=== PATIENT | male | born 1970 | race Hispanic/Latino ===

== ENCOUNTER 2018-07-06 01:28 | Emergency (ER) | payer OTHER ==
--- NOTE | 2018-07-06 03:05 | ED PDOC ---
HPI: Chest Pain Time Seen by Provider: 07/06/18 02:05 Chief Complaint (Nursing): Chest Pain Chief Complaint (Provider): Chest Pain History Per: Patient History/Exam Limitations: no limitations Onset/Duration Of Symptoms: Hrs (1 hr [employer]) Current Symptoms Are (Timing): Still Present Exacerbating Factors: Movement Additional Complaint(s): 48 year old male with pmhx of sarcoidosis lungs, anxiety and HTN presents to the ED for an evaluation of left sided chest pain radiating to the left arm onset one hour prior to arrival today. Patient reports the pain worsens with movement and touch. Otherwise, he denies fever or shortness of breath . PMD: no family provider Past Medical History Reviewed: Historical Data, Nursing Documentation, Vital Signs Vital Signs: Last Vital Signs Temp 98.1 F 07/06/18 02:00 Pulse 88 07/06/18 02:00 Resp 19 07/06/18 02:00 BP 157/92 H 07/06/18 02:00 Pulse Ox 98 07/06/18 02:00 Primary Care Provider: FAMILY PROVIDER,NO - Medical History PMH: Anxiety, HTN - Surgical History Surgical History: Cholecystectomy - Family History Family History: States: Unknown Family Hx - Social History Current smoker - smoking cessation education provided: No Alcohol: Occasional Drugs: Denies - Home Medications Home Medications: Ambulatory Orders Medication Instructions Recorded Aspirin [Adult Low Dose Aspirin EC] 81 mg PO ASDIR 07/06/18 Multivitamin/Iron/Folic Acid 1 tab PO DAILY 07/06/18 [Centrum Adults Tablet] Omeprazole Magnesium [Prilosec Otc] 20 mg PO DAILY 07/06/18 Tadalafil [Cialis] 5 mg PO DAILY 07/06/18 Valsartan [Diovan] 40 mg PO DAILY 07/06/18 metFORMIN [glucOPHAGE] 500 mg PO BID #20 tab 07/06/18 - Allergies Allergies/Adverse Reactions: Allergies Allergy/AdvReac Type Severity Reaction Status Date / Time Penicillins Allergy URTICARIA Verified 07/06/18 02:05 PIPER Risk Score for UA/NSTEMI - PIPER Risk Score Age > 64: NO 3 or more CAD Risk Factors: NO Known CAD (Stenosis greater than 50%): NO Aspirin use in past 7 days: NO Severe Angina: NO EKG ST changes greater than 0.5mm: NO Positive Cardiac Marker: NO PIPER Score: 0 Risk %: 5% Curb-65 Severity Score - CURB-65 Severity Score Confusion: No Bun >19mg/dl (>7mmol/L): No Respiratory Rate greater than/equal to 30: No Systolic BP <90 or Diastolic BP less than/equal 60mmHg: No Age >64: No Curb-65 Score: 0 Percentage 30-day mortality: 0.6% Wells Criteria for PE - Wells Criteria for Pulmonary Embolism Clinical Signs and Symptoms of DVT: No P.E is #1 Diagnosis, or Equally Likely: No Heart Rate >100: No Immobilization at least 3 days;Surgery previous 4 weeks: No Previous, objectively diagnosed PE or DVT: No Hemoptysis: No Malignancy w/treatment within 6 months, or palliative: No Total Score: 0 Review of Systems ROS Statement: Except As Marked, All Systems Reviewed And Found Negative Constitutional: Negative for: Fever Cardiovascular: Positive for: Chest Pain Respiratory: Negative for: Cough, Shortness of Breath Physical Exam - Reviewed Nursing Documentation Reviewed: Yes Vital Signs Reviewed: Yes - Physical Exam Appears: Positive for: Well, Non-toxic, No Acute Distress Head Exam: Positive for: ATRAUMATIC, NORMAL INSPECTION, NORMOCEPHALIC Skin: Positive for: Normal Color, Warm, DRY Eye Exam: Positive for: EOMI, Normal appearance, PERRL ENT: Positive for: Normal ENT Inspection Neck: Positive for: Normal, Painless ROM, Supple. Negative for: Decreased ROM Cardiovascular/Chest: Positive for: Regular Rate, Rhythm. Negative for: Murmur Respiratory: Positive for: Normal Breath Sounds. Negative for: Decreased Breath Sounds, Wheezing, Respiratory Distress Gastrointestinal/Abdominal: Positive for: Normal Exam, Bowel Sounds, Soft. Negative for: Tenderness Back: Positive for: Normal Inspection Extremity: Positive for: Normal ROM. Negative for: Tenderness, Pedal Edema, Deformity Neurological/Psych: Positive for: Awake, Alert, Normal Tone, Oriented (x3) - Laboratory Results Result Diagrams: 07/06/18 03:00 07/06/18 03:00 - ECG O2 Sat by Pulse Oximetry: 98 (RA) Pulse Ox Interpretation: Normal Medical Decision Making Medical Decision Making: Time: 02:54 Impression: chest pain rule out penumonia, rule out electrolyte abnormality Plan: --CMP --Troponin --CBC w/ differential --CXR 04:25 pt has hyperglycemia. in all likelihood pt symptoms are related to new onset diabetes. Patient has not followed up with doctor thus far. 06:02 noted Ketone in urine Anion gap is 12 which is normal will continue to hydrate and give insulin and recheck sugar after those interventions 06:34 sugar decreasing pt aware of new onset DM, and need for oupt follow up in near term for monitori ng of sugars and well visit. pt feels improved. states symptoms are resolved. cardiac wilde, pt has normal ekg and normal troponin. explained that he still needs to follow up. pt agreeable to plan. awake and alert in no distress. Patient will be discharged home and needs to follow up at the clinic within 2 days Scribe Attestation: Documented by Mathew Felder, acting as a scribe for González Choi MD. Provider Scribe Attestation: All medical record entries made by the Scribe were at my direction and personally dictated by me. I have reviewed the chart and agree that the record accurately reflects my personal performance of the history, physical exam, medical decision making, and the department course for this patient. I have also personally directed, reviewed, and agree with the discharge instructions and disposition. Disposition - Clinical Impression Clinical Impression: Diabetes mellitus, new onset - Patient ED Disposition Is Patient to be Admitted: No Counseled Patient/Family Regarding: Studies Performed, Diagnosis, Need For Followup - Disposition Referrals: [facility] [Outside] [facility] [Outside] Disposition: Routine/Home Disposition Time: 06:00 Condition: IMPROVED Additional Instructions: follow up with the clinic in 2days for continued management of your diabetes return to the ED with any worsening or concerning symptoms Prescriptions: metFORMIN [glucOPHAGE] 500 mg PO BID #20 tab Instructions: Type 2 Diabetes, Diabetes Diet Forms: [employer] ([place])
[2018-07-06 03:37] LABS: ALB/GLOB RATIO 1.4 (1.0-2.1); ALT/SGPT 41 U/L (21-72); AST/SGOT 49 U/L (17-59); BLOOD UREA NITROGEN 15 mg/dl (9-20); CALCIUM 8.5 mg/dL (8.4-10.2); GFR NON-AFRICAN AMERICAN > 60
[2018-07-06 03:58] LABS: BASO % 0.5 % (0.0-2.0); EOS # 0.2 K/uL (0.0-0.7); EOS % 3.2 % (0.0-4.0); HEMOGLOBIN 14.6 g/dL (12.0-18.0); LYMPH % 17.6 % (20.0-40.0); MEAN CORPUSCULAR HEMOGLOBIN 30.7 pg (27.0-31.0); MEAN CORPUSCULAR HGB CONC 36.6 g/dL (33.0-37.0); MEAN PLATELET VOLUME 7.2 fl (7.2-11.7); MONO # 0.5 K/uL (0.0-0.8); MONO % 8.4 % (0.0-10.0); NEUT # 3.9 K/uL (1.8-7.0); NEUT % 70.3 % (50.0-75.0); NRBC % 0.1 % (0.0-0.0); RBC 4.76 Mil/uL (4.40-5.90); WHITE BLOOD COUNT 5.5 K/uL (4.8-10.8)
[2018-07-06] MEDS ORDERED: Insulin Regular 100 units/ml SC STA ×2 (04:09→06:01)
[2018-07-06] MEDS ORDERED: Sodium Chloride 0.9% 1,000 ML IV STA ×2 (04:10→06:01)
[2018-07-06] MEDS ORDERED: Insulin Regular 100 units/ml ONE ×2 (04:25→06:10)
[2018-07-06 06:07] VITALS: RESP 14; TEMP 97.8
[2018-07-06 07:36] VITALS: BP 139/90; PULSE 75
--- NOTE | 2018-07-06 09:18 | RAD ---
Date of service: 07/06/2018 HISTORY: cp COMPARISON: No prior. TECHNIQUE: Chest PA and lateral views FINDINGS: LUNGS: No active pulmonary disease. PLEURA: No significant pleural effusion identified. No pneumothorax apparent. CARDIOVASCULAR: No aortic atherosclerotic calcification present. Normal cardiac size. No pulmonary vascular congestion. OSSEOUS STRUCTURES: No significant abnormalities. VISUALIZED UPPER ABDOMEN: Normal. OTHER FINDINGS: None. IMPRESSION: No active disease.
[2018-07-07 02:08] VITALS: O2SAT 98
== END 2018-07-06 07:20 | disposition home or self-care (01) ==
LOC: H.ER 01:28
DX: E11.65 Type 2 diabetes mellitus with hyperglycemia (principal); D86.9 Sarcoidosis, unspecified; I10 Essential (primary) hypertension; Z79.4 Long term (current) use of insulin; Z79.82 Long term (current) use of aspirin; Z79.899 Other long term (current) drug therapy; Z88.0 Allergy status to penicillin
CPT/HCPCS: 71046; 80053; 82948; 84484; 85025; 96360; 96361; 99285; J7030